=== PATIENT | female | born 1995 | race Caucasian/White ===

== ENCOUNTER 2018-05-28 15:51 | Emergency (ER) | payer MEDICAID ==
[~2018-05-28] VITALS: Ht 170.2 cm; Wt 77.1 kg
[2018-05-28 15:55] VITALS: BP_SYST 150
[2018-05-28] MEDS ORDERED: KETOROLAC TROMETHAMINE 60 MG/2 ML VIAL IM ONE (16:45)
[2018-05-28 17:04] LABS: BASOPHILS # (AUTO) 0.1 K/uL (0.0-0.2); BASOPHILS % (AUTO) 1.3 % (0.0-2.0); EOSINOPHILS # (AUTO) 0.2 K/uL (0.0-0.4); EOSINOPHILS % (AUTO) 2.5 % (0.0-4.0); LYMPHOCYTES # (AUTO) 3.7 K/uL (1.0-5.5); LYMPHOCYTES % (AUTO) 37.5 % (20.5-51.5); MEAN CORPUSCULAR HEMOGLOBIN 28 pg (27-31); MEAN CORPUSCULAR HGB CONC 33 % (32-36); MEAN CORPUSCULAR VOLUME 85 fL (79.0-98.0); MONOCYTES # (AUTO) 0.8 K/uL (0.0-1.0); MONOCYTES % (AUTO) 7.9 % (1.7-9.3); NEUTROPHILS # (AUTO) 5.1 K/uL (1.8-7.7); NEUTROPHILS % (AUTO) 50.8 % (40.0-70.0); PLATELET COUNT (AUTO) 356 K/uL (130-430); RED BLOOD CELL COUNT(AUTO) 5.08 MIL/uL (4.2-6.2); RED CELL DISTRIBUTION WIDTH 13.1 % (9.0-15.0); WHITE BLOOD COUNT (AUTO) 9.9 K/uL (4.8-10.8)
[2018-05-28 17:11] LABS: CALCIUM 8.2 mg/dL (8.4-11.0); CREATININE 0.69 mg/dL (0.55-1.30); POTASSIUM 3.4 mmol/L (3.5-5.1)
[2018-05-28 17:14] LABS: BILIRUBIN,URINE NEGATIVE (NEGATIVE); BLOOD, URINE 3+ (NEGATIVE); CLARITY/URINE HAZY (CLEAR); COLOR,URINE YELLOW (YELLOW); GLUCOSE,URINE NEGATIVE (NEGATIVE); KETONES,URINE NEGATIVE (NEGATIVE); NITRITE, URINE NEGATIVE (NEGATIVE); PH,URINE 8.5 (5.0-8.0); PROTEIN URINE TRACE (NEGATIVE); UROBILINOGEN,URINE 0.2 (0.2-1.0)
[2018-05-28 17:14] LABS: PROTHROMBIN TIME 10.2 SECS (9.5-12.5)
[2018-05-28 17:16] LABS: TOTAL BILIRUBIN 0.3 mg/dL (0.0-1.0)
[2018-05-28 17:20] LABS: LEUKOCYTE ESTERASE ,URINE NEGATIVE (NEGATIVE)
[2018-05-28 17:21] LABS: BACTERIA,URINE FEW /HPF (None Seen); MUCUS,URINE None Seen /LPF (None Seen); RBC,URINE >100 /HPF (0-3); WBC,URINE 0-3 /HPF (0-3)
[2018-05-28 18:35] VITALS: BP_SYST 143
== END 2018-05-28 18:35 | disposition home or self-care (01) ==
LOC: SED 15:51
DX: M54.5 Low back pain (principal); E66.9 Obesity, unspecified; Z68.26 Body mass index [BMI] 26.0-26.9, adult
CPT/HCPCS: 36415; 74176; 80053; 81000; 81025; 82150; 83690; 84703; 85025; 85610; 85730; 96372; 99284; J1885

== ENCOUNTER 2018-08-12 06:17 | Emergency (ER) | payer MEDICAID ==
[~2018-08-12] VITALS: Ht 167.6 cm; Wt 90.7 kg
[2018-08-12 06:20] VITALS: BP_SYST 150
[2018-08-12] MEDS ORDERED: KETOROLAC TROMETHAMINE 60 MG/2 ML VIAL IM ONE (07:00)
[2018-08-12 08:20] VITALS: BP_SYST 148
== END 2018-08-12 08:20 | disposition home or self-care (01) ==
LOC: SED 06:17
DX: H60.91 Unspecified otitis externa, right ear (principal); R03.0 Elevated blood-pressure reading, without diagnosis of hypertension
CPT/HCPCS: 96372; 99283; J1885

== ENCOUNTER 2019-10-22 14:57 | Inpatient (IN) | payer MEDICAID ==
[~2019-10-22] VITALS: Ht 170.2 cm; Wt 111.3 kg
[2019-10-22] MEDS ORDERED: ONDANSETRON HCL 4 MG/2 ML VIAL IVP ONE (15:00)
[2019-10-22] MEDS ORDERED: NACL 0.9% 1,000 ML IV ONE (15:00)
[2019-10-22] MEDS ORDERED: KETOROLAC TROMETHAMINE 30 MG VIAL IVP ONE (15:00)
--- NOTE | 2019-10-22 15:04 | NUR ---
Patient to ER bed 6 to gown for evaluation. Side rails up. Report given to VASQUEZ.
[2019-10-22] MEDS ORDERED: IBUP-23 PO (15:09)
[2019-10-22 15:10] VITALS: BP_SYST 131
--- NOTE | 2019-10-22 15:16 | NUR ---
PATIENT PRESENTS TO THE ER WITH HX OF LOWER MIDDLE BACK PAIN FOR ONE WEEK; NO TRAUMA, NO OTHER REMARKABLE S/S
--- NOTE | 2019-10-22 15:20 | NUR ---
IV angiocath # 22 placed by JOSEFINA Rosenbaum, no evidence of inflitration noted.
[2019-10-22 15:22] LABS: BILIRUBIN,URINE NEGATIVE (NEGATIVE); BLOOD, URINE 1+ (NEGATIVE); CLARITY/URINE CLEAR (CLEAR); COLOR,URINE YELLOW (YELLOW); GLUCOSE,URINE NEGATIVE (NEGATIVE); KETONES,URINE NEGATIVE (NEGATIVE); LEUKOCYTE ESTERASE ,URINE TRACE (NEGATIVE); NITRITE, URINE NEGATIVE (NEGATIVE); PROTEIN URINE NEGATIVE (NEGATIVE); UROBILINOGEN,URINE 0.2 (0.2-1.0)
[2019-10-22 15:26] LABS: BASOPHILS # (AUTO) 0.1 K/uL (0.0-0.2); BASOPHILS % (AUTO) 0.6 % (0.0-2.0); EOSINOPHILS # (AUTO) 0.1 K/uL (0.0-0.4); EOSINOPHILS % (AUTO) 1.1 % (0.0-4.0); HEMATOCRIT 42.9 % (36-48); HEMOGLOBIN 14.6 g/dL (12.0-16.0); LYMPHOCYTES # (AUTO) 3.1 K/uL (1.0-5.5); LYMPHOCYTES % (AUTO) 31.1 % (20.5-51.5); MEAN CORPUSCULAR HEMOGLOBIN 28 pg (27-31); MEAN CORPUSCULAR HGB CONC 34 % (32-36); MEAN CORPUSCULAR VOLUME 83 fL (79.0-98.0); MONOCYTES # (AUTO) 0.7 K/uL (0.0-1.0); MONOCYTES % (AUTO) 7.4 % (1.7-9.3); NEUTROPHILS # (AUTO) 5.9 K/uL (1.8-7.7); NEUTROPHILS % (AUTO) 59.8 % (40.0-70.0); PLATELET COUNT (AUTO) 322 K/uL (130-430); RED BLOOD CELL COUNT(AUTO) 5.17 MIL/uL (4.2-6.2); RED CELL DISTRIBUTION WIDTH 14.1 % (9.0-15.0); WHITE BLOOD COUNT (AUTO) 9.9 K/uL (4.8-10.8)
[2019-10-22 15:29] LABS: CALCIUM 8.6 mg/dL (8.4-11.0); CREATININE 0.96 mg/dL (0.55-1.30); POTASSIUM 4.2 mmol/L (3.5-5.1)
[2019-10-22 15:34] LABS: INR 1.1 (0.8-1.2); PROTHROMBIN TIME 10.6 SECS (9.5-12.5)
[2019-10-22 15:35] LABS: ALBUMIN 3.9 g/dL (3.4-4.8); TOTAL BILIRUBIN 0.4 mg/dL (0.0-1.0)
[2019-10-22 15:40] LABS: BACTERIA,URINE FEW /HPF (None Seen); MUCUS,URINE None Seen /LPF (None Seen); RBC,URINE NONE SEEN /HPF (0-3)
[2019-10-22] MEDS ORDERED: MORPHINE 4 MG/ML INJ. SYRINGE IVP ONE (18:15)
--- NOTE | 2019-10-22 18:27 | NUR ---
Orders received from Dr. Fountain, called for room assignment. Orders entered by JOSEFINA.
--- NOTE | 2019-10-22 19:00 | NUR ---
Report given to JOSEFINA Garcia for continuation of care.
--- NOTE | 2019-10-22 19:12 | NUR ---
Patient's code status is Full code paperwork completed and placed in chart.
--- NOTE | 2019-10-22 19:15 | NUR ---
Medication reconciliation completed with information provided by Patient. Any prior medication reconciliation on file was reviewed and corrected.
[2019-10-22] MEDS ORDERED: ONDANSETRON HCL 4 MG/2 ML VIAL IVP PRN (19:30)
[2019-10-22] MEDS ORDERED: ACETAMINOPHEN 325 MG TABLET PO PRN (19:30)
[2019-10-22] MEDS ORDERED: HYDROcodone/ACETAMIN 5-325 MG TAB (NORCO/ VICODIN) PO PRN (19:30)
--- NOTE | 2019-10-22 20:27 | NUR ---
Patient will be admitted to [facility]. Admitted to medsurg unit. Will go to room 114b. Belongings list completed. Complete and up to date summary report printed. SBAR report to be given at bedside with opportunity for questions.
--- NOTE | 2019-10-22 20:30 | NUR ---
Transfer to [facility]. IV present no sign or symptom of infiltration.
--- NOTE | 2019-10-22 20:40 | NUR ---
ADMITTED 24 YR OLD FEMALE FR ER VIA [facility].A/A/O X4. PER PT HAS BEEN HAVING LOWER BACK SHARP PAIN X1 WEEK LE[employer]. ORIENTED TO HER ENVIRONMENT,BED CONTROL,CALL LIGHT;WITHIN REACH.INSTRUCTED TO USE CALL LIGHT NEEDED. AFEBRILE,O2 SAT ON RA 98 %,BP 138/78 MMHG.
[2019-10-22 20:42] LABS: PHOSPHORUS 4.1 mg/dL (2.7-4.5); THYROID STIMULATING HORMONE 3.67 uIu/mL (0.36-3.74)
[2019-10-22 20:45] VITALS: BP_SYST 138
[2019-10-22 21:00] VITALS: BP_SYST 138
[2019-10-22] MEDS: HEPARIN SODIUM,PORCINE 5000 UNITS/ML VIAL SUBCUT SCH (21:50)
[2019-10-22] MEDS: DEXAMETHASONE SOD PHOSPHATE 4 MG/ML VIAL IM SCH (21:54)
[2019-10-22] MEDS: DOCUSATE SODIUM 100 MG CAPSULE PO SCH (21:55)
[2019-10-22] MEDS: BACLOFEN 10 MG TABLET PO SCH (21:55)
--- NOTE | 2019-10-22 22:00 | NUR ---
ASSISTED OOB TO THE BR & BACK TO BED.
[2019-10-22] MEDS: NITROFURANTOIN MONOHYD/M-CRYST 100 MG CAPSULE PO SCH (22:07)
[2019-10-22] MEDS: MORPHINE 4 MG/ML INJ. SYRINGE IVP PRN (22:34)
--- NOTE | 2019-10-22 22:34 | NUR ---
C/O SEVERE SHARP PAIN ON HER LOWER BACK .MORPHINE SULFATE 4 MG IVP ADM.
--- NOTE | 2019-10-22 23:04 | NUR ---
PER PT PAIN STILL PERSIST BUT DECREASED TO SCALE 3/10.
[2019-10-22 23:49] LABS: BARBITURATE, URINE NEGATIVE (NEG <=200); BENZODIAZEPINE, URINE NEGATIVE (NEG <=150); CANNABINOID, URINE NEGATIVE (NEG <=50); COCAINE, URINE NEGATIVE (NEG <=150); METHAMPHETAMINES SCREEN,URINE NEGATIVE (NEG <=500); OPIATE, URINE NEGATIVE (NEG <=100); PHENCYCLIDINE SCREEN,URINE NEGATIVE (NEG <=25); UR TRICYCLIC ANTIDEPRESSANTS NEGATIVE (NEG <=300); URINE AMPHETAMINE NEGATIVE (NEG <=500); URINE METHADONE NEGATIVE (NEG <=200); URINE OXYCODONE SCREEN NEGATIVE (NEG <=100); URINE PROPOXYPHENE SCREEN NEGATIVE (NEG <=300)
--- NOTE | 2019-10-23 | NUR ---
DENIES PAIN @ THIS TIME. AFEBRILE. BP 149/82 MMHG.
[2019-10-23 00:34] VITALS: BP_SYST 149
--- NOTE | 2019-10-23 02:00 | NUR ---
RESTING COMFORTABLY IN NO ACUTE DISTRESS.
[2019-10-23 03:05] VITALS: BP_SYST 140
[2019-10-23] MEDS: MORPHINE 4 MG/ML INJ. SYRINGE IVP PRN (03:17)
--- NOTE | 2019-10-23 03:17 | NUR ---
C/O SEVERE SHARP RIGHT LEG PAIN .MORPHINE IVP ADM.
--- NOTE | 2019-10-23 03:47 | NUR ---
PER PT PAIN WITH RELIEF POST MORPHINE.
[2019-10-23] MEDS: DEXAMETHASONE SOD PHOSPHATE 4 MG/ML VIAL IM SCH (04:00)
[2019-10-23 06:10] LABS: BASOPHILS % (AUTO) 0.3 % (0.0-2.0); HEMATOCRIT 42.1 % (36-48); HEMOGLOBIN 14.2 g/dL (12.0-16.0); LYMPHOCYTES # (AUTO) 1.4 K/uL (1.0-5.5); LYMPHOCYTES % (AUTO) 14.9 % (20.5-51.5); MEAN CORPUSCULAR HEMOGLOBIN 28 pg (27-31); MEAN CORPUSCULAR HGB CONC 34 % (32-36); MEAN CORPUSCULAR VOLUME 84 fL (79.0-98.0); MONOCYTES # (AUTO) 0.2 K/uL (0.0-1.0); MONOCYTES % (AUTO) 1.8 % (1.7-9.3); NEUTROPHILS # (AUTO) 7.9 K/uL (1.8-7.7); PLATELET COUNT (AUTO) 314 K/uL (130-430); RED BLOOD CELL COUNT(AUTO) 5.01 MIL/uL (4.2-6.2); RED CELL DISTRIBUTION WIDTH 14.1 % (9.0-15.0); WHITE BLOOD COUNT (AUTO) 9.5 K/uL (4.8-10.8)
[2019-10-23 06:32] LABS: CALCIUM 8.4 mg/dL (8.4-11.0); CREATININE 0.87 mg/dL (0.55-1.30)
--- NOTE | 2019-10-23 06:50 | NUR ---
ENDORSED RESTING COMFORTABLY IN NO ACUTE DISTRESS,SAFETY MAINTAINED.CALL LIGHT WITHIN REACH.
[2019-10-23] MEDS ORDERED: Nitrofurantoin Monohyd/M-Cryst PO (07:24)
[2019-10-23] MEDS ORDERED: BACL10TA PO (07:24)
[2019-10-23 08:12] VITALS: BP_SYST 126
--- NOTE | 2019-10-23 08:14 | NUR ---
Opening Rounds Patient is awake, alert and oriented x4. Patient is eating breakfast in bed. No resp distress noted. Patient denies any pain at this time. IV on left hand, 22 gauge. No skin issues at this time. No abnormal bleeding reported. Safety and fall precautions in place. Call light within reach. Bed in lowest position, alarm on, locked. Will continue to monitor.
[2019-10-23] MEDS: DOCUSATE SODIUM 100 MG CAPSULE PO SCH (08:46)
[2019-10-23] MEDS: NITROFURANTOIN MONOHYD/M-CRYST 100 MG CAPSULE PO SCH (08:46)
[2019-10-23] MEDS: BACLOFEN 10 MG TABLET PO SCH (08:46)
[2019-10-23] MEDS: HEPARIN SODIUM,PORCINE 5000 UNITS/ML VIAL SUBCUT SCH (08:49)
[2019-10-23 09:49] VITALS: BP_SYST 128
[2019-10-23 10:25] VITALS: BP_SYST 128
--- NOTE | 2019-10-23 11:55 | NUR ---
D/C Patient Patient given medication reconciliation form and D/C instructions. Exit Care provided. Patient verbalized understanding. MD discussed with patient the results and treatment provided. Ambulatory with steady gait for discharge to home. Patient in stable condition, ID band removed. IV catheter removed, intact and dressing applied, no active bleeding. Rx given. Patient educated on pain management. All belongings sent with patient.
== END 2019-10-23 11:55 | disposition home or self-care (01) | DRG 347 ==
LOC: SED 14:57 → SMU 18:25
PROVIDERS: ADMIT Student in an Organized Health Care Education/Training Program; ATTEND Student in an Organized Health Care Education/Training Program
DX: M51.26 Other intervertebral disc displacement, lumbar region (principal); R65.10 Systemic inflammatory response syndrome (SIRS) of non-infectious origin without acute organ dysfunction; E66.9 Obesity, unspecified; N39.0 Urinary tract infection, site not specified; M48.07 Spinal stenosis, lumbosacral region; Z68.38 Body mass index [BMI] 38.0-38.9, adult
CPT/HCPCS: 36415; 72131; 80048; 80053; 80061; 80307; 81000-TC; 82150-TC; 83036; 83690-TC; 83735-TC; 84100-TC; 84443-TC; 84484; 85025; 85610-TC; 85730-TC; 87086; 96361; 96374; 96375; 99285; J1100; J1644; J1885; J2270; J2405; J7030

== ENCOUNTER 2020-01-05 09:33 | Emergency (ER) | payer MEDICAID ==
[~2020-01-05] VITALS: Ht 167.6 cm; Wt 83.9 kg
[~2020-01-05 09:33] MED LIST: BACL10TA PO; IBUP-23 PO; Nitrofurantoin Monohyd/M-Cryst PO
[2020-01-05 09:45] VITALS: BP_SYST 133
[2020-01-05] MEDS: DIPH-TET-PERTUS Vaccine 0.5 ML VIAL (ADACEL) I.M. ONE (10:31)
[2020-01-05 10:48] VITALS: BP_SYST 133
== END 2020-01-05 10:38 | disposition home or self-care (01) ==
LOC: SED 09:33
DX: S61.431A Puncture wound without foreign body of right hand, initial encounter (principal); R03.0 Elevated blood-pressure reading, without diagnosis of hypertension; W22.8XXA Striking against or struck by other objects, initial encounter; Y93.89 Activity, other specified; Y92.89 Other specified places as the place of occurrence of the external cause; Y99.8 Other external cause status
CPT/HCPCS: 90715; 99283

== ENCOUNTER 2020-10-02 14:47 | Emergency (ER) | payer MEDICAID ==
[~2020-10-02] VITALS: Ht 170.2 cm; Wt 120.2 kg
[2020-10-02 15:07] VITALS: BP_SYST 140
[2020-10-02] MEDS ORDERED: KETOROLAC TROMETHAMINE 60 MG/2 ML VIAL IM ONE (16:00)
[2020-10-02] MEDS ORDERED: CYCLOBENZAPRINE HCL 10 MG TABLET (FLEXERIL) PO ONE (16:00)
[2020-10-02 16:54] LABS: BILIRUBIN,URINE NEGATIVE (NEGATIVE); BLOOD, URINE NEGATIVE (NEGATIVE); CLARITY/URINE CLEAR (CLEAR); COLOR,URINE YELLOW (YELLOW); GLUCOSE,URINE NEGATIVE (NEGATIVE); KETONES,URINE NEGATIVE (NEGATIVE); LEUKOCYTE ESTERASE ,URINE NEGATIVE (NEGATIVE); NITRITE, URINE NEGATIVE (NEGATIVE); PH,URINE 6.5 (5.0-8.0); PROTEIN URINE NEGATIVE (NEGATIVE); UROBILINOGEN,URINE 0.2 (0.2-1.0)
[2020-10-02] MEDS ORDERED: NAPR-1172 PO (17:25)
[2020-10-02] MEDS ORDERED: CYCL-10 PO (17:25)
[2020-10-02 17:38] VITALS: BP_SYST 140
== END 2020-10-02 17:38 | disposition home or self-care (01) ==
LOC: SED 14:47
DX: M54.5 Low back pain (principal); I10 Essential (primary) hypertension; Z79.899 Other long term (current) drug therapy
CPT/HCPCS: 81003; 81025; 96372; 99283; J1885

== ENCOUNTER 2022-10-06 00:47 | Emergency (ER) | payer MEDICAID ==
[~2022-10-06 00:47] MED LIST changes: +CYCL10TA24 PO; +NAPR-1172 PO
[2022-10-06 01:09] VITALS: BP_SYST 154
[2022-10-06] MEDS ORDERED: DIPHENHYDRAMINE INJ 50 MG/ML VIAL IVP ONE (01:15)
[2022-10-06] MEDS ORDERED: DEXAMETHASONE SOD PHOSPHATE 10 MG/ML VIAL IVP ONE (01:15)
[2022-10-06] MEDS ORDERED: NACL 0.9% 1,000 ML IV ONE (01:15)
[2022-10-06] MEDS ORDERED: FAMOTIDINE PF 20 MG/2 ML VIAL IVP ONE (01:15)
[2022-10-06] MEDS ORDERED: EPINEPHRINE HCL/PF 1 MG/ML AMP IM ONE ×2 (01:15→02:30)
[2022-10-06] MEDS ORDERED: LORazepam 1 MG TABLET PO ONE (02:30)
[2022-10-06] MEDS ORDERED: EPIN0.3P3 IM (03:45)
[2022-10-06] MEDS ORDERED: Cefdinir PO (03:45)
[2022-10-06 03:47] VITALS: BP_SYST 149
== END 2022-10-06 04:00 | disposition home or self-care (01) ==
LOC: SED 00:47
DX: T78.3XXA Angioneurotic edema, initial encounter (principal); T36.0X5A Adverse effect of penicillins, initial encounter; Z79.899 Other long term (current) drug therapy; Y92.89 Other specified places as the place of occurrence of the external cause
CPT/HCPCS: 99291; 96374; 96375; 96361; 81025; 96372; J1100; J1200; J0171; J3490; J7030